=== PATIENT | male | born 1990 | race Caucasian/White ===

== ENCOUNTER 2017-09-22 23:14 | Emergency (ER) | payer OTHER ==
[~2017-09-22] VITALS: Ht 185.4 cm; Wt 79.4 kg
[~2017-09-22 23:14] MED LIST: CYCL10 PO; IBUP600 PO; IBUP800 PO; NAPR550 PO; Norco 5-325 Ta1 EACH PO; Percocet 5-3251 EACH PO
== END 2017-09-23 01:20 | disposition home or self-care (01) ==
LOC: ER 23:14
DX: J98.01 Acute bronchospasm (principal); F15.10 Other stimulant abuse, uncomplicated; Z91.030 Bee allergy status; F17.210 Nicotine dependence, cigarettes, uncomplicated
CPT/HCPCS: 71046; 94640; 96372; 99283; J1100

== ENCOUNTER 2017-10-22 12:53 | Emergency (ER) | payer MEDICAID ==
[~2017-10-22] VITALS: Ht 185.4 cm; Wt 74.8 kg
== END 2017-10-22 15:35 | disposition home or self-care (01) ==
LOC: ER 12:53
DX: M25.562 Pain in left knee (principal); Z91.030 Bee allergy status; F17.210 Nicotine dependence, cigarettes, uncomplicated
CPT/HCPCS: 73564; 99283; J1885

== ENCOUNTER 2018-01-19 07:15 | Observation (INO) | payer OTHER ==
[~2018-01-19] VITALS: Ht 182.9 cm; Wt 73.9 kg
[2018-01-19 08:22] LABS: BASOPHILS ABSOLUTE AUTO 0.07 K/mm3 (0.00-0.23); BASOPHILS PERCENT AUTO 1 % (0-2); EOSINOPHILS ABSOLUTE AUTO 0.17 K/mm3 (0.00-0.68); EOSINOPHILS PERCENT AUTO 2 % (0-6); Hematocrit 40.8 % (37.0-53.0); Hemoglobin 13.9 g/dL (13.5-17.5); IMMATURE GRAN ABSOLUTE AUTO 0.02 K/mm3 (0.00-0.10); IMMATURE GRAN PERCENT AUTO 0 % (0-1); LYMPHOCYTES ABSOLUTE AUTO 2.47 K/mm3 (0.84-5.20); LYMPHOCYTES PERCENT AUTO 29 % (21-46); MONOCYTES ABSOLUTE AUTO 0.73 K/mm3 (0.16-1.47); MONOCYTES PERCENT AUTO 9 % (4-13); Mean Corpuscular HGB 30.1 pg (26.0-34.0); Mean Corpuscular HGB Conc 34.1 g/dL (31.5-36.5); Mean Corpuscular Volume 88 fL (80-100); Mean Platelet Volume 9.9 fL (9.1-12.4); NEUTROPHILS ABSOLUTE AUTO 4.97 K/mm3 (1.96-9.15); NEUTROPHILS PERCENT AUTO 59 % (41-73); Platelet Count 317 K/mm3 (150-400); RDW Coefficient Variation 13.3 % (11.7-14.2); RDW Standard Deviation 42.9 fL (35.1-46.3); Red Blood Cell Count 4.62 M/mm3 (4.30-5.90); White Blood Cell Count 8.43 K/mm3 (4.00-11.30)
[2018-01-19 08:33] LABS: Ethanol (Alcohol), Blood, Med <3 mg/dL; Salicylate <1.7 mg/dL (2.8-20.0)
[2018-01-19 08:41] LABS: Alanine Aminotransfer (ALT/SGP 33 U/L (12-78); Albumin, Blood 4.1 g/dL (3.4-5.0); Albumin/Globulin Ratio 1.1 (0.8-1.8); Alk Phos 60 U/L (50-136); Anion Gap 6 mmol/L (6-16); Aspartate Aminotrans (AST/SGOT 38 U/L (12-37); Blood Urea Nitrogen 15 mg/dL (8-24); CO2, Blood 29 mmol/L (21-32); Calcium, Blood 8.7 mg/dL (8.5-10.1); Chloride, Blood 106 mmol/L (98-108); Creatinine, Blood 0.94 mg/dL (0.60-1.20); Globulin, Blood 3.6 g/dL (2.2-4.0); Glomerular Filtration Rate >60 (60-); Glucose, Blood 95 mg/dL (70-99); Potassium, Blood 3.5 mmol/L (3.5-5.5); Sodium, Blood 141 mmol/L (136-145); Thyroid Stimulating Hormone 0.548 uIU/mL (0.360-4.800); Total Protein, Blood 7.7 g/dL (6.4-8.2)
[2018-01-19 08:58] LABS: Acetaminophen, Random <2.0 ug/mL (10.0-30.0)
[2018-01-19 10:43] LABS: Source, Urine Clean Catch
[2018-01-19 10:53] LABS: Bilirubin, Urine Neg (Neg); Blood, Urine Neg (Neg); Glucose Qualitative, Urine Neg (Neg); Ketones, Urine 2+ (Neg); Leukocyte Esterase, Urine Neg (Neg); Nitrite, Urine Neg (Neg); Protein, Urine 1+ (Neg); Specific Gravity, Urine 1.015 (1.003-1.022); Urobilinogen, Urine NORM (Normal)
[2018-01-19 11:12] LABS: U Amphetamine Screen DETECTED; U Barbituate Screen Not Detected; U Benzodiazapine Screen Not Detected; U Buprenorphine Screen Not Detected; U Cannabinoids Screen DETECTED; U Cocaine Screen Not Detected; U Methadone Screen Not Detected; U Methamphetamine Screen DETECTED; U Opiates Screen Not Detected; U Oxycodone Screen Not Detected; U Phencyclidine Screen Not Detected; U Propoxyphene Screen Not Detected
[2018-01-19 11:16] LABS: Appearance, Urine Clear (Clear); Color, Urine Yellow (P-Yellow)
== END 2018-01-19 11:55 | disposition home or self-care (01) ==
LOC: ER 07:15 → EOR 07:16
PROVIDERS: Emergency Medicine
DX: F15.10 Other stimulant abuse, uncomplicated (principal); F17.210 Nicotine dependence, cigarettes, uncomplicated
CPT/HCPCS: 36415; 80053; 84443; 85025; 93005; 93010; 96360; 99285-25; G0378; G0480; J7030

== ENCOUNTER 2022-01-07 09:41 | Emergency (ER) | payer MEDICAID ==
[~2022-01-07] VITALS: Ht 185.4 cm; Wt 83.9 kg
[2022-01-07 11:08] LABS: Influenza B, PCR NEGATIVE (NEGATIVE); Resp Syncytial Virus, PCR NEGATIVE (NEGATIVE); SARS-Cov-2 (COVID-19) PCR, MMC NEGATIVE (NEGATIVE)
[2022-01-07 11:09] LABS: Influenza A, PCR POSITIVE (NEGATIVE)
[2022-01-07] MEDS ORDERED: OSEL75CA PO (11:15)
[2022-01-08] MEDS ORDERED: AZIT250 PO (20:11)
[2022-01-08] MEDS ORDERED: AMOCLA875 PO (20:11)
== END 2022-01-07 11:41 | disposition home or self-care (01) ==
LOC: ER 09:41
PROVIDERS: Physician Assistant
DX: J10.1 Influenza due to other identified influenza virus with other respiratory manifestations (principal); J20.8 Acute bronchitis due to other specified organisms; J02.8 Acute pharyngitis due to other specified organisms; R04.0 Epistaxis; F17.210 Nicotine dependence, cigarettes, uncomplicated; E10.9 Type 1 diabetes mellitus without complications; Z20.822 Contact with and (suspected) exposure to COVID-19; Z91.038 Other insect allergy status; Z79.4 Long term (current) use of insulin
CPT/HCPCS: 0241U; 71046; 93005; 93010; 96372; 99283-25; A9270; J1885

== ENCOUNTER 2022-01-14 04:23 | Inpatient (IN) | payer MEDICAID ==
[~2022-01-14] VITALS: Ht 185.4 cm; Wt 78.5 kg
[~2022-01-14 04:23] MED LIST changes: +AMOCLA875 PO; +AZIT250 PO; +OSEL75CA PO
[2022-01-14 05:05] LABS: BASOPHILS ABSOLUTE AUTO 0.08 K/mm3 (0.00-0.23); BASOPHILS PERCENT AUTO 1 % (0-2); EOSINOPHILS ABSOLUTE AUTO 0.31 K/mm3 (0.00-0.68); EOSINOPHILS PERCENT AUTO 2 % (0-6); Hematocrit 39.5 % (37.0-53.0); Hemoglobin 13.2 g/dL (13.5-17.5); IMMATURE GRAN ABSOLUTE AUTO 0.38 K/mm3 (0.00-0.10); IMMATURE GRAN PERCENT AUTO 3 % (0-1); LYMPHOCYTES ABSOLUTE AUTO 2.24 K/mm3 (0.84-5.20); LYMPHOCYTES PERCENT AUTO 15 % (21-46); MONOCYTES ABSOLUTE AUTO 1.59 K/mm3 (0.16-1.47); MONOCYTES PERCENT AUTO 11 % (4-13); Mean Corpuscular HGB 30.5 pg (26.0-34.0); Mean Corpuscular HGB Conc 33.4 g/dL (31.5-36.5); Mean Corpuscular Volume 91 fL (80-100); Mean Platelet Volume 9.3 fL (9.1-12.4); NEUTROPHILS ABSOLUTE AUTO 10.46 K/mm3 (1.96-9.15); NEUTROPHILS PERCENT AUTO 69 % (41-73); Platelet Count 510 K/mm3 (150-400); RDW Coefficient Variation 13.5 % (11.7-14.2); RDW Standard Deviation 45.9 fL (35.1-46.3); Red Blood Cell Count 4.33 M/mm3 (4.30-5.90); White Blood Cell Count 15.06 K/mm3 (4.00-11.30)
[2022-01-14 05:22] LABS: Bun/Creatinine Ratio 15.6 (12.0-20.0); Calcium, Blood 9.2 mg/dL (8.5-10.1); Creatinine, Blood 0.71 mg/dL (0.60-1.20); Potassium, Blood 3.8 mmol/L (3.5-5.5)
[2022-01-14 09:58] LABS: International Normalized Ratio 1.26
--- NOTE | 2022-01-14 15:36 | NUR ---
ADMIT PT ADMITTED AT 1445. PT ORIENTED TO ROOM. CALL LIGHT IN REACH. WATER & URINAL PROVIDED. PT EDUCATED THAT A URINE AND SPUTUM SAMPLE ARE NEEDED. PT STATES HE UNDERSTANDS. HEPARIN GTT RUNNING AT 18 U/KG/HR. VS REVIEWED. PT RESTING IN BED.
--- NOTE | 2022-01-14 17:03 | NUR ---
SHIFT SUMMARY PT ADMITTED THIS SHIFT. SLEPT FOR SOME TIME AFTER ADMISSION. HEPARIN GTT RUNNING. PT PROVIDED UA. AT 1645 PT STARTED C/O BACK PAIN & STIFFNESS. PT OFFERED TYLENOL OR ULTRAM. PT ASKED IF HE WAS ON "A NO NARCOTIC THING". THIS RN EDUCATED THE PT THAT ULTRAM WAS IN FACT A NARCOTIC. PT THEN ASKED "ARE THE MEDS ORAL". THIS RN REPLIED, YES AND THE PT STATED HE DOES NOT WANT THEM. THEN PT CALLED SOMEONE ON THE PHONE AND STATED "I WILL TEXT YOU SOMETHING". THIS RN INFORMED THE PT AND OUTSIDE MEDICATIONS AND DRUGS ARE NOT PERMITTED IN THE HOSPITAL. THE PT STATES HE UNDERSTANDS. PT THEN STATED HE IS GOING TO LEAVE IF HIS PAIN DOESNT GET UNDER CONTROL. THIS RN CALLED DR. VARGAS WHO DID NOT WANT TO MAKE ANY CHANGES TO THE PTS MED REGIMEN. PT UPDATED THAT THE ORIGINAL MEDS ARE STILL AVAILABLE, BUT NOTHING ELSE. PT ASKED FOR KETAMINE BY NAME. THIS RN AGAIN STATED THE MD SAID NO. PT THEN ASKED WHAT HE CAN TO DO TREAT THIS SEPSIS SO HE CAN LEAVE. THIS RN REPLIED "HOSPITALIZATION". PT FRUSTRATED, BUT AGREED TO TAKE THE TYLENOL AND ULTRAM. BOBBIN COLLECTOR NOTIFIED. OTHERWISE, NO OTHER ACUTE CHANGES IN ASSESSMENT AT THIS TIME.
[2022-01-14 17:11] LABS: U Amphetamine Screen DETECTED; U Barbituate Screen Not Detected; U Benzodiazapine Screen Not Detected; U Buprenorphine Screen Not Detected; U Cannabinoids Screen DETECTED; U Cocaine Screen Not Detected; U Methadone Screen Not Detected; U Methamphetamine Screen DETECTED; U Opiates Screen Not Detected; U Oxycodone Screen DETECTED; U Phencyclidine Screen Not Detected; U Propoxyphene Screen Not Detected
--- NOTE | 2022-01-15 01:42 | NUR ---
PT VOICED SEVERE PAIN IN BACK. THAT THE TORADOL, TYLENOL AND ULTRUM WERENT WORKING. CALLS PLACED TO FIRST MD, WAS ABLE TO CHANGE TORADOL FROM Q 6P TO Q4P. BUT PT STILL VOICED NOT WRKING. CALL PLACED TO SECOND MD (STARTED AT 0000). ORDERS FOR IV FENTANYL 24 - 50 MCG Q 4PRN. PT TOLERATED FENTANYL, ALLOWED STAFF TO DRAW BLOOD, HE IS ON A HEPARIN DRIP. SE JR FOR DETAILS. CALL LIGHT IN REACH. ISOLATION PRECAUTIONS MAINTAINED
--- NOTE | 2022-01-15 03:39 | NUR ---
ACCOUNT ANALYST SUMMARY AWAKE AT INTERVALS. VOICED SEVERE PAIN IN BACK. VOICED HIS CURRENT MEDS WERENT WORKING. MD NOTIFIED AND FENTANYL WAS ORDERED - SEE MAR FOR DETAILS. HEPARIN DRIP INFUSING, RECEIVED BOLUS DOSE AND INCREASED TO 20 U/KG, 31.6 ML/HR. FENTANYL EFFECTIVE, HAS BEEN RESTING QUIETLY WITH FEW INTERRUPTIONS SINCE. ISOLATION PRECAUTIONS IN EFFECT. IV ANTIBIOTICS INFUSING. LUNG SOUNDS DIMINISHED. CALL LIGHT IN REACH
[2022-01-15 09:03] LABS: BASOPHILS ABSOLUTE AUTO 0.08 K/mm3 (0.00-0.23); BASOPHILS PERCENT AUTO 1 % (0-2); EOSINOPHILS ABSOLUTE AUTO 0.44 K/mm3 (0.00-0.68); EOSINOPHILS PERCENT AUTO 3 % (0-6); Hematocrit 41.3 % (37.0-53.0); Hemoglobin 13.8 g/dL (13.5-17.5); IMMATURE GRAN ABSOLUTE AUTO 0.26 K/mm3 (0.00-0.10); IMMATURE GRAN PERCENT AUTO 2 % (0-1); LYMPHOCYTES ABSOLUTE AUTO 2.13 K/mm3 (0.84-5.20); LYMPHOCYTES PERCENT AUTO 15 % (21-46); MONOCYTES ABSOLUTE AUTO 1.39 K/mm3 (0.16-1.47); MONOCYTES PERCENT AUTO 10 % (4-13); Mean Corpuscular HGB Conc 33.4 g/dL (31.5-36.5); Mean Corpuscular Volume 93 fL (80-100); Mean Platelet Volume 9.4 fL (9.1-12.4); NEUTROPHILS ABSOLUTE AUTO 9.86 K/mm3 (1.96-9.15); NEUTROPHILS PERCENT AUTO 70 % (41-73); Platelet Count 425 K/mm3 (150-400); RDW Coefficient Variation 13.5 % (11.7-14.2); RDW Standard Deviation 46.7 fL (35.1-46.3); Red Blood Cell Count 4.45 M/mm3 (4.30-5.90); White Blood Cell Count 14.16 K/mm3 (4.00-11.30)
[2022-01-15 09:23] LABS: Vancomycin, Trough 12.8 ug/mL (5.0-10.0)
[2022-01-15 09:28] LABS: Anti-Xa UFH, PHA Monitoring 0.26 IU/mL; D-Dimer, Quantitative 3.16 mg/L FEU (0.00-0.52)
[2022-01-15 09:29] LABS: Albumin, Blood 2.4 g/dL (3.4-5.0); Albumin/Globulin Ratio 0.5 (0.8-1.8); Bilirubin, Total 0.6 mg/dL (0.1-1.0); Bun/Creatinine Ratio 15.1 (12.0-20.0); Calcium, Blood 8.9 mg/dL (8.5-10.1); Creatinine, Blood 0.66 mg/dL (0.60-1.20); Globulin, Blood 4.9 g/dL (2.2-4.0); Magnesium, Blood 1.7 mg/dL (1.6-2.4); Potassium, Blood 3.9 mmol/L (3.5-5.5); Total Protein, Blood 7.3 g/dL (6.4-8.2)
--- NOTE | 2022-01-15 14:21 | NUR ---
PT REQUESTED TO GO OUT TO SMOKE. PT STATED HE SMOKES 2 PACKS PER DAY. CALLED DR MCNEILL AND REQUESTED A NICOTIENE PATCH FOR THE PT. PLACED ORDER FOR 21MCG NICOTIENE PATCH PER DR MCNEILL'S ORDERS.
--- NOTE | 2022-01-15 18:36 | NUR ---
SHIFT SUMMARY- PT ALERT AND ORIENTED AND INDEPENDENT IN THE ROOM. PT C/O EXTREME WEAKNESS, SAYING IT IS "DIFFICULT TO HOLD MY FORK." PT HAD A PE STUDY DONE TODAY AND WAS ABLE TO LIE STILL WITH THE HELP OF ATIVAN. IV HEPARIN DRIP WAS DC'D ONCE THE RESULTS WERE IN. PT STILL RECIEVING IV ABX. PT IN BED, CALL LIGHT IN REACH NO S&S OF DISTRESS. VISITOR JUST ARRIVED AND IS AT THE BEDSIDE CURRENTLY. MULTIPE C/O PAIN T/O THE DAY IN THE UPPER BACK, MANAGED BEST BY THE IV TORADOL. DOSE WAS DOUBLED AFTER THE PT RECIEVED THE LAST DOSE AND FREQUENCY WAS CHANGED. PT PAIN SEEMS TO BE WELL MANAGED, PO ATIVAN SEEMS TO HELP HIM A LOT MORE THAN THE TRAMADOL THAT WAS DC'D TODAY. WILL CTM PT AND PASS ON TO NIGHT RN IN BEDSIDE REPORT.
--- NOTE | 2022-01-16 05:30 | NUR ---
PT WITH CONTINOUS PAIN TO CHEST AND BACK. PT REPORTS THIS HAS BEEN AN ONGING ISSUE AND THAT TRAMADOL DOES NOT HELP AT ALL. PT ENCOURAGED TO TAKE THIS HOWEVER REPORTS THAT SINCE HE HAS BEEN ON IT HE REMAINS IN PAIN AND DOES NOT NOTICE A CHANGE. STATES THIS IS THE SAME EVEN WITH THE INCREASED DOSE. PT GIVEN FENTANYL AND REPORTS THAT THIS HELPS THE PAIN TO WHERE IT IS TOLERABLE FOR HIM TO SIT UP AND WALK AROUND. PT ALSO MEDICATED WITH TYLENOL HE STATED THAT FENTANYL HELPED BUT DOES NOT TAKE THE PAIN COMPLETELY AWAY AND WANTING TO COMBINE WITH TYLENOL. PT ALSO NOTED TO BE ANXIOUS REGARDING ANY NEEDLE OR MEDICATION BROUGHT IN. PT WOULD FREQUENTLY ASKED WHAT HE WAS BEING GIVEN AND WHERE THE BLUNT NEEDLE WOULD BE GOING. MEDICATED WITH ATIVAN PER SEP.
[2022-01-16 10:17] LABS: Hemoglobin 13.6 g/dL (13.5-17.5); Mean Corpuscular HGB 30.4 pg (26.0-34.0); Mean Corpuscular HGB Conc 33.2 g/dL (31.5-36.5); Mean Corpuscular Volume 92 fL (80-100); Platelet Count 531 K/mm3 (150-400); RDW Coefficient Variation 13.5 % (11.7-14.2); RDW Standard Deviation 45.8 fL (35.1-46.3); Red Blood Cell Count 4.47 M/mm3 (4.30-5.90); White Blood Cell Count 13.83 K/mm3 (4.00-11.30)
[2022-01-16 10:43] LABS: Albumin, Blood 2.5 g/dL (3.4-5.0); Albumin/Globulin Ratio 0.5 (0.8-1.8); Bilirubin, Total 0.4 mg/dL (0.1-1.0); Bun/Creatinine Ratio 11.9 (12.0-20.0); Calcium, Blood 9.7 mg/dL (8.5-10.1); Creatinine, Blood 1.01 mg/dL (0.60-1.20); Globulin, Blood 5.1 g/dL (2.2-4.0); Potassium, Blood 4.1 mmol/L (3.5-5.5); Total Protein, Blood 7.6 g/dL (6.4-8.2)
[2022-01-16 10:46] LABS: Vancomycin, Trough 20.3 ug/mL (5.0-10.0)
--- NOTE | 2022-01-16 19:22 | NUR ---
SHIFT SUMMARY- PT HAS HAD NO ACUTE CHANGES T/O THE SHIFT. ALTHOUGH THIS EVENING HE DEVELOPED A SUDDEN HEADACHE WHEN THIS RN MEDICATED WITH TORADOL AND TYLENOL THE PT HAD A COUGHING FIT, IT APPEARED HE WAS GOING TO PASS OUT HE COULD NOT CATCH HIS BREATH BETWEEN COUGHS, HE WAS STARTING TO PANIC A LITTLE, MEDICATED WITH TESSELON PEARLS, PT REQUESTED FENTANYL FOR CHEST AND BACK PAIN AFTER THE COUGHING FIT. BEDSIDE REPORT COMPLETED WITH NIGHT RN SHE WILL MEDICATED WITH FENTANYL IF NEEDED, PT AWARE. PT CURRENTLY SITTINGON THE EOB WITH THE CALL LIGHT IN REACH NO CURRENT S&S OF DISTRESS.
--- NOTE | 2022-01-17 05:46 | NUR ---
PT STATES TOLD HIM HE MIGHT BE ANNAMARIA TO BE D/C TODAY AND IS LOOKING FOWARD TO THIS. PT DID NOT WANT TO BE BOTHERED AND STATED HE DID NOT WANT HIS SECOND SET OF VS DONE. PT ALSO TOLD LAB THAT HE WANTED THEM TO COME BACK LATER. LAB TO COME BACK AROUND 8 AM. MEDICATED PER MAR FOR PAIN. DID HAVE ONE EPISODE OF FEELING NAUSEOUS AND NEEDED ZOFRAN X1. PT HAD TACO MURCIA FOR DINNER THAT HAD DELIVERED FOR HIM. ALSO REPORTED HE HAD A NOSE BLEED THAT WAS BRIEF. TISSUE PAPER NOTED WITH MINIMAL BLOOD. PT DID NOT REPORT ANY FURTHER EPISODES.
[2022-01-17] MEDS ORDERED: Tessalon200 MG PO (10:58)
[2022-01-17] MEDS ORDERED: GUAIFENESIN ER600 MG PO (10:59)
[2022-01-17] MEDS ORDERED: LEVO750 PO (11:00)
[2022-01-17] MEDS ORDERED: IBUP400 PO (11:01)
[2022-01-17] MEDS ORDERED: PROAIR DIGIHAL90 MCG INH (11:06)
--- NOTE | 2022-01-17 12:21 | NUR ---
PATIENT DISCHARGED BEFORE DISCHARGE PAPAER WAS COMPLETED. PATIENT REFUSED TO STAY UNTIL PAPERWORK WAS DONE. MEDS FAXED TO [facility] BY PROGRAM MANAGER
== END 2022-01-17 09:54 | disposition home or self-care (01) | DRG 871 ==
LOC: ER 04:23 → ERHOLD 08:27 → MEDS 08:27
PROVIDERS: Emergency Medicine; Internal Medicine; Nurse Practitioner Acute Care; ADMIT Hospitalist
DX: A41.89 Other specified sepsis (principal); J10.01 Influenza due to other identified influenza virus with the same other identified influenza virus pneumonia; J91.8 Pleural effusion in other conditions classified elsewhere; F11.10 Opioid abuse, uncomplicated; B19.20 Unspecified viral hepatitis C without hepatic coma; F15.10 Other stimulant abuse, uncomplicated; Z91.14 Patient's other noncompliance with medication regimen; Z87.440 Personal history of urinary (tract) infections; Z91.030 Bee allergy status; Z91.038 Other insect allergy status
CPT/HCPCS: 36415; 71045; 71260; 74176; 80048; 80053; 80202; 83605; 83735; 84145; 84484; 85025; 85027; 85379; 85520; 85610; 85730; 87040; 87070; 87205; 87449; 93005; 93010; 96365-59; 96366-59; 96367-59; 96375-59; 96376-59; 99285-25; A9270; J1644; J1650; J1885; J2405; J2543; J3010; J3370; J7030; J7060; Q9967